=== PATIENT | female | born 2000 | race Caucasian/White ===

== ENCOUNTER 2023-12-22 13:04 | Emergency (ER) | payer BC ==
[~2023-12-22] VITALS: Ht 154.9 cm; Wt 55.0 kg
[2023-12-22 13:19] VITALS: O2SAT 99
[2023-12-22] MEDS: IBUPROFEN 600MG TABLET PO ONE (13:54)
[2023-12-22] MEDS ORDERED: IBUP-2029 MT (14:25)
[2023-12-22 15:04] VITALS: BP 125/80; PULSE 69; RESP 12; TEMP 98.5
== END 2023-12-22 15:06 | disposition home or self-care (01) ==
LOC: ER 13:04
DX: S60.211A Contusion of right wrist, initial encounter (principal); W18.30XA Fall on same level, unspecified, initial encounter; Y93.89 Activity, other specified; Y92.89 Other specified places as the place of occurrence of the external cause; Y99.8 Other external cause status
CPT/HCPCS: 29125; 73130; 99283